=== PATIENT | female | born 1980 | race Caucasian/White ===

== ENCOUNTER 2016-05-16 00:53 | Emergency (ER) | payer OTHER ==
[~2016-05-16] VITALS: Ht 170.2 cm; Wt 103.0 kg
--- NOTE | 2016-05-16 02:02 | ED GI/GU/ABDOMINAL COMPLAINT ---
History of Present Illness General Chief Complaint: Abdominal Pain/Flank Pain Stated Complaint: LT SIDE FLANK PAIN SEEN AT [facility] YESTERDAY Source: patient, family Exam Limitations: no limitations Vital Signs & Intake/Output Vital Signs & Intake/Output Vital Signs Date Time Temp Pulse Resp B/P Pulse O2 O2 Flow FiO2 Ox Delivery Rate 05/16 0130 97.0 89 18 122/74 99 Room Air Allergies Coded Allergies: NO KNOWN ALLERGIES (01/09/12) Reconcile Medications Ciprofloxacin HCl 500 MG TABLET 1 TAB PO BID INFECTION (Reported) Metronidazole 500 MG TABLET 1 TAB PO BID INFECTION (Reported) Triage Note: PT TO ED C/O LEFT SIDE PAIN FOR 5-6 DAYS (SINCE SATURDAY) +N/V. DENIES DIARRHEA. WAS SEEN AT [facility] YESTERDAY FOR SAME "THEY WOULDN'T DO A CAT SCAN BECAUSE I'VE HAD SO MANY" PMH OF OVARIAN CYSTS ON RT SIDE. WAS TOLD MIGHT BE DIVERTICULITIS, STARTED 2 ANTIBIOTICS LAST NIGHT. WENT TO [facility] AND HAD US "EVERYTHING LOOKS FINE" SEES GI DOCTOR R/T PMH OF CONSTIPATION. "I CAN'T SLEEP" Triage Nurses Notes Reviewed? yes ? N Is pt currently ? No Onset: Abrupt Duration: day(s): (FEW) Timing: recent history Quality/Severity: moderate, severe Severity Numbers: 10 Location: left lower quadrant Radiation: no radiation Associated Symptoms: abdominal pain HPI: 35-year-old female with history of multiple surgeries including 36 C-sections, tubal ligation and presents the ER for chief complaint of worsening left lower quadrant abdominal pain. She was seen at [facility] and diagnosed clinically with diverticulitis or an ovarian cyst. CAT scan was not done because she had 2 in the last year. She saw her ASSISTANT BUSINESS MANAGER yesterday that did an ultrasound in the office and was negative for ovarian cyst. She's been taking 2 antibiotics and states she has not tolerated anything for pain because of vomiting. No fever or chills. Minimal flank pain. Past History Travel History Traveled to [place] past 21 day No Medical History Any Pertinent Medical History? 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 No Review of Systems Review of Systems Constitutional: Denies: chills, fever. EENTM: Reports: no symptoms. Respiratory: Denies: short of breath. Cardiovascular: Denies: chest pain. GI: Reports: abdominal pain, nausea, vomiting. Genitourinary: Denies: discharge, dysuria, frequency, hematuria, hesitation. Musculoskeletal: Reports: back pain. Skin: Reports: no symptoms. Neurological/Psychological: Reports: anxiety. Hematologic/Endocrine: Denies: bruising, bleeding, polyuria, polydipsia. Immunologic/Allergic: Denies: splenectomy. All Other Systems: Reviewed and Negative Physical Exam Physical Exam General Appearance: well developed/nourished, alert, awake, anxious, mild distress, obese Head: atraumatic, normal appearance Eyes: Bilateral: normal appearance, PERRL, normal inspection. Ears, Nose, Throat, Mouth: hearing grossly normal, moist mucous membrane Neck: normal inspection, supple, full range of motion Respiratory: normal breath sounds, chest non-tender, no respiratory distress Cardiovascular: regular rate/rhythm Peripheral Pulses: 2+ radial (R), 2+ radial (L) Gastrointestinal: normal bowel sounds, soft, tenderness (LEFT LOWER QUADRANT), NO REBOUND OR GUARDING Extremities: normal range of motion Neurologic/Psych: no motor/sensory deficits, awake, alert, oriented x 3 Skin: intact, normal color, warm/dry Core Measures ACS in differential dx? No Severe Sepsis Present: No Septic Shock Present: No Progress Differential Diagnosis: diverticulitis, ectopic , intrauterine , kidney stone, ovarian cyst, ovarian torsion, UTI/pyelo Plan of Care: Orders Procedure Date/time Status URINE 05/16 209 Complete URINALYSIS 05/16 209 Complete COMPREHENSIVE METABOLIC PANEL 05/16 209 Complete CBC WITHOUT DIFFERENTIAL 05/16 209 Complete Laboratory Tests 05/16/16 0304: Urine Color YEL, Urine Clarity CLEAR, Urine pH 5.5, Ur Specific [place] >= 1.030 , Urine Protein NEG, Urine Ketones NEG, Urine Nitrite NEG, Urine Bilirubin NEG, Urine Urobilinogen 0.2, Ur Leukocyte Esterase NEG, Ur Microscopic EXAM NOT REQUIRED, Urine Hemoglobin NEG, Urine Glucose NEG, Urine Test NEGATIVE 05/16/16 0225: Anion Gap 8, Estimated GFR > 60, BUN/Creatinine Ratio 23.3, Glucose 105 H, Calcium 9.2, Total Bilirubin 0.4, AST 18, ALT 27, Alkaline Phosphatase 100, Total Protein 6.9, Albumin 3.9, Globulin 3.0, Albumin/Globulin Ratio 1.3, CBC w Diff NO MAN DIFF REQ, RBC 4.08 L, MCV 88.5, MCH 29.7, RDW 14.4, MPV 7.6, Gran % 57.5, Lymphocytes % 32.2, Monocytes % 7.0, Eosinophils % 2.7, Basophils % 0.6, Absolute Granulocytes 4.3, Absolute Lymphocytes 2.4, Absolute Monocytes 0.5, Absolute Eosinophils 0.2, Absolute Basophils 0, PUBS MCHC 33.6 labs wnl. patient still with pain llq. second hospital visit for same symptoms. Atypical age for diverticulitis, will obain CT. patient was counseled regarding risks and benefits of CT scanning. Patient improved after Zofran Toradol and fluids. (SANDRA ZAPIEN,LILIANA) Diagnostic Imaging: Viewed by Me: CT Scan. Discussed w/RAD: CT Scan. Radiology Impression: PATIENT: ROBERT MACIAS PRESENT AGE: 35 PATIENT ACCOUNT NO: [id number] : 82 LOCATION: [facility] ORDERING PHYSICIAN: LILIANA FLORES MD SERVICE DATE: 05/16/16 EXAM TYPE: CAT - CT ABD & PELVIS W IV CONTRAST EXAMINATION: CT ABDOMEN AND PELVIS WITH CONTRAST CLINICAL INFORMATION: Left lower quadrant pain. Concern for diverticulitis COMPARISON: None TECHNIQUE: Multidetector volumetric imaging was performed of the abdomen and pelvis before and after the IV administration of 93 mL of Optiray 320 intravenous contrast. Sagittal and coronal reformatted images were obtained on the technologist's workstation. DLP: 994.31 mGy-cm FINDINGS: LUNG BASES: The visualized lung bases are unremarkable. LIVER, GALLBLADDER, AND BILIARY TREE: The liver is normal in size, shape, and attenuation. No focal hepatic lesion or biliary ductal dilatation is present. The gallbladder is unremarkable with no evidence of radiopaque gallstones, gallbladder wall thickening, or obvious pericholecystic inflammatory changes. PANCREAS: Unremarkable. SPLEEN: Unremarkable. ADRENAL GLANDS: Unremarkable. KIDNEYS AND URETERS: The kidneys are normal in size, shape, and attenuation. No hydronephrosis, hydroureter, or calculi seen. No perinephric stranding. BLADDER: Unremarkable. GASTROINTESTINAL TRACT: The small and large bowel are unremarkable. There is no diverticula or diverticulitis. Moderate volume of stool in the colon. No bowel obstruction. No bowel wall thickening or edema. The appendix is unremarkable. ABDOMINAL WALL: No significant hernia is appreciated. LYMPH NODES: Normal. VASCULAR: Unremarkable. PELVIC VISCERA: 2.5 cm hypodensity in the right adnexa consistent with right ovarian cyst or dominant follicle. Uterus is anteverted. No fluid in the cul-de-sac. OSSEOUS STRUCTURES: Unremarkable. IMPRESSION: No acute abnormality. No acute change of bowel. DICTATED BY: MICHELLE BURNS MD DATE/TIME DICTATED:05/16/16420 [employer] FIRST OFFICER :ELDER DATE/TIME TRANSCRIBED:05/16/16420 CONFIDENTIAL, DO NOT COPY WITHOUT APPROPRIATE AUTHORIZATION. <Electronically signed in Other Vendor System> SIGNED BY: MICHELLE BURNS MD 05/16/16450 Initial ED EKG: none Departure Departure Time of Disposition: 452 Disposition: HOME OR SELF CARE Condition: Stable Clinical Impression Primary Impression: Abdominal pain Secondary Impressions: Ovarian cyst Referrals: STACEY DIMAS DO (PCP/Family) Additional Instructions: Continue your antibiotic prescriptions. Please follow-up with your GI doctor in the office. Return to the ER for any changing or worsening symptoms. Departure Forms: Customer Survey General Discharge Information
[2016-05-16 02:38] LABS: ABSOLUTE BASOPHIL COUNT 0 /CUMM (0.0-0.2); ABSOLUTE EOSINOPHIL COUNT 0.2 /CUMM (0.0-0.7); ABSOLUTE GRANULOCYTE CT 4.3 /CUMM (1.4-6.5); ABSOLUTE LYMPH COUNT 2.4 /CUMM (1.2-3.4); ABSOLUTE MONOCYTE COUNT 0.5 /CUMM (0.10-0.60); BASOPHIL % 0.6 % (0.0-2.0); EOSINOPHIL % 2.7 % (0-5); GRANULOCYTE % 57.5 % (42.2-75.2); HEMATOCRIT 36.1 % (37-47); MEAN CORPUSCULAR HGB 29.7 PG (27.0-31.0); MEAN CORPUSCULAR HGB CONC 33.6 G/DL (33.0-37.0); MEAN CORPUSCULAR VOLUME 88.5 FL (81.0-99.0); MEAN PLATELET VOLUME 7.6 FL (7.4-10.4); PLATELET COUNT 403 /CUMM (130-400); RBC DISTRIBUTION WIDTH 14.4 % (11.5-14.5); RED BLOOD CELL CT 4.08 /CUMM (4.20-5.40); WHITE BLOOD CELL COUNT 7.4 /CUMM (4.8-10.8)
--- NOTE | 2016-05-16 04:51 | CT SCAN REPORT ---
EXAMINATION: CT ABDOMEN AND PELVIS WITH CONTRAST CLINICAL INFORMATION: Left lower quadrant pain. Concern for diverticulitis COMPARISON: None TECHNIQUE: Multidetector volumetric imaging was performed of the abdomen and pelvis before and after the IV administration of 93 mL of Optiray 320 intravenous contrast. Sagittal and coronal reformatted images were obtained on the technologist's workstation. DLP: 994.31 mGy-cm FINDINGS: LUNG BASES: The visualized lung bases are unremarkable. LIVER, GALLBLADDER, AND BILIARY TREE: The liver is normal in size, shape, and attenuation. No focal hepatic lesion or biliary ductal dilatation is present. The gallbladder is unremarkable with no evidence of radiopaque gallstones, gallbladder wall thickening, or obvious pericholecystic inflammatory changes. PANCREAS: Unremarkable. SPLEEN: Unremarkable. ADRENAL GLANDS: Unremarkable. KIDNEYS AND URETERS: The kidneys are normal in size, shape, and attenuation. No hydronephrosis, hydroureter, or calculi seen. No perinephric stranding. BLADDER: Unremarkable. GASTROINTESTINAL TRACT: The small and large bowel are unremarkable. There is no diverticula or diverticulitis. Moderate volume of stool in the colon. No bowel obstruction. No bowel wall thickening or edema. The appendix is unremarkable. ABDOMINAL WALL: No significant hernia is appreciated. LYMPH NODES: Normal. VASCULAR: Unremarkable. PELVIC VISCERA: 2.5 cm hypodensity in the right adnexa consistent with right ovarian cyst or dominant follicle. Uterus is anteverted. No fluid in the cul-de-sac. OSSEOUS STRUCTURES: Unremarkable. IMPRESSION: No acute abnormality. No acute change of bowel.
[2016-05-16 05:05] VITALS: BP 114/69
[2016-05-16] MEDS ORDERED: CIPROFLOXACIN500 M2 PO (05:05)
[2016-05-16] MEDS ORDERED: METRONIDAZOLE500 M1 PO (05:06)
== END 2016-05-16 05:08 ==
LOC: ERH 00:53
PROVIDERS: Emergency Medicine
DX: N83.202 Unspecified ovarian cyst, left side (principal)
CPT/HCPCS: 74177; 81003; 81025; 96361; 96374; 96375; J1885; J2405